=== PATIENT | male | born 1950 | race Caucasian/White ===

== ENCOUNTER 2023-12-07 06:01 | Observation (INO) ==
[~2023-12-07 06:01] MED LIST: Lactated Ringers 1000 ml BAG 1,000 ML IV SCH; Metoclopramide 5 MG/ML VIAL (10 mg) IV PRN; Naloxone 0.4 mg VIAL 0.4 mg/ml 1 ml VIAL IV PRN; Ondansetron 4 mg VIAL 2 MG/ML 2 ml VIAL IV PRN; Scopolamine 1 mg/72hr PATCH TRANSDERM ONE; fentaNYL 100 mcg/2 ml 50 MCG/ML VIAL IV PRN
[2023-12-07] MEDS ORDERED: ceFAZolin 2 GM in NS PREMIX 2 GM/100 ML BAG IVPB ONE (06:29)
[2023-12-07] MEDS ORDERED: fentaNYL 100 mcg/2 ml 50 MCG/ML VIAL ONE ×2 (06:51→10:51)
[2023-12-07] MEDS ORDERED: Rocuronium 50 mg VIAL 10 mg/ml 5 ml VIAL (50 mg) ONE (06:54)
[2023-12-07 07:06] LABS: Rapid COVID-19 Molecular Undetected (Undetected)
[2023-12-07] MEDS ORDERED: Ondansetron 4 mg VIAL 2 MG/ML 2 ml VIAL IV PRN ×2 (07:09→07:16)
[2023-12-07] MEDS ORDERED: Metoclopramide 5 MG/ML VIAL (10 mg) IV PRN (07:09)
[2023-12-07] MEDS ORDERED: fentaNYL 100 mcg/2 ml 50 MCG/ML VIAL IV PRN (07:09)
[2023-12-07] MEDS ORDERED: Naloxone 0.4 mg VIAL 0.4 mg/ml 1 ml VIAL IV PRN (07:09)
[2023-12-07] MEDS ORDERED: Bupivacaine 0.25% SDV PF 10 ML VIAL INJ ONE (07:13)
[2023-12-07] MEDS ORDERED: Midazolam 2 mg/2 ml VIAL 1 mg/ml 2 ml VIAL (2 mg) ONE (07:39)
[2023-12-07] MEDS ORDERED: HYDROmorphone 0.5 MG/0.5 ML SYRINGE ONE (08:16)
[2023-12-07] MEDS ORDERED: BUPIVACAINE **LIPOSOME/PF 13.3 MG/ML (266MG/ 20ML) VIAL (RESTRICTED) INFIL ONE (09:00)
[2023-12-07] MEDS ORDERED: Simvastatin 40 mg TAB (NF) PO SCH (09:00)
[2023-12-07] MEDS ORDERED: EPINEPHrine SYR 0.1MG/ML 10 ml SYRINGE IV ONE (09:54)
[2023-12-07] MEDS ORDERED: Ondansetron 4 mg VIAL 2 MG/ML 2 ml VIAL ONE (11:46)
[2023-12-07] MEDS ORDERED: Dexamethasone IV 4 MG/ML VIAL 1 ml VIAL ONE (11:46)
[2023-12-07] MEDS: Neomycin/Polym/Bacit TOP OINT 15 GM TOPICAL SCH ×4 (12:48→21:11)
[2023-12-07] MEDS: Magnesium Hydroxide LIQ 30 ML UDC PO SCH ×2 (12:48→20:59)
[2023-12-07 13:40] LABS: Calcium 8.5 mg/dL (8.6-10.3); Creatinine, Serum 0.91 mg/dL (0.67-1.17); Potassium 4.4 mmol/L (3.5-5.0)
[2023-12-07] MEDS: NS 0.9% 1000 ml BAG 1,000 ML IV SCH ×2 (13:40→21:42)
[2023-12-07 13:41] LABS: ABS Lymphocytes 0.7 10^3/uL (1.0-4.8); ABS Monocytes 0.8 10^3/uL (0.0-1.1); ABS Neutrophils 13.4 10^3/uL (1.5-7.6); ABS Nucleated RBC 0.01 10^3/ul; Eosinophil % 0.1 %; Hematocrit 42.9 % (38-53); Hemoglobin 14.4 g/dL (13.2-16.3); Mean Corpuscular Hgb Conc 33.7 g/dL (31-36); Mean Corpuscular Volume 91.9 fL (80-97); Mean Platelet Volume 8.8 fL (7.5-11.2); Platelet Count 216 10^3/uL (150-450); Red Blood Count 4.67 10^6/uL (4.06-5.63); Red Cell Distribution Width 14.8 % (12-17)
[2023-12-08] MEDS: NS 0.9% 1000 ml BAG 1,000 ML IV SCH (05:49)
[2023-12-08] MEDS ORDERED: CMCS: Simvastatin 20 mg TAB (NF) PO SCH (09:00)
[2023-12-08] MEDS: Magnesium Hydroxide LIQ 30 ML UDC PO SCH (09:45)
[2023-12-08] MEDS: Neomycin/Polym/Bacit TOP OINT 15 GM TOPICAL SCH (09:45)
[2023-12-08 10:50] VITALS: BP 170/80
== END 2023-12-08 11:26 | disposition home or self-care (01) ==
LOC: SSU 06:01 → OR 06:01
PROVIDERS: ADMIT Urology; ATTEND Urology